=== PATIENT | female | born 1990 | race Caucasian/White ===

== ENCOUNTER 2016-07-25 10:39 | Emergency (ER) | payer OTHER ==
[2016-07-25 10:47] VITALS: BP 127/85
--- NOTE | 2016-07-25 11:39 | XRAY Preliminary Report ---
Exam: XR Ankle 3 View RT IMPRESSION: Negative for fracture, dislocation or subluxation in the right ankle radiography. [facility] SITE ID: [id number]
--- NOTE | 2016-07-25 11:40 | XRAY Preliminary Report ---
Exam: XR Foot 3 View RT IMPRESSION: Normal foot radiography. [facility] SITE ID: [id number]
--- NOTE | 2016-07-25 11:41 | XRAY Report ---
EXAM: RIGHT ANKLE RADIOGRAPHY EXAM DATE: 07/25/2016 11:14 AM. CLINICAL HISTORY: Ankle and foot pain. Fall from a stationary pickup truck. COMPARISON: None. TECHNIQUE: 3 views. FINDINGS: Bones: No fractures or bone lesions. Joints: No effusion. No subluxations. The ankle mortise is normally aligned. Soft Tissues: Anterior and lateral ankle soft tissue swelling without radiopaque foreign body. IMPRESSION: Negative for fracture, dislocation or subluxation in the right ankle radiography. [facility] Referring Provider Line: [phone] SITE ID: [id number]
--- NOTE | 2016-07-25 11:43 | XRAY Report ---
EXAM: RIGHT FOOT RADIOGRAPHY EXAM DATE: 07/25/2016 11:14 AM. CLINICAL HISTORY: Ankle and foot pain. Fall from a stationary pickup truck. COMPARISON: None. TECHNIQUE: 3 views. FINDINGS: Bones: Normal. No fractures or bone lesions. Joints: Normal. No subluxations. Soft Tissues: Normal. No soft tissue swelling. IMPRESSION: Normal foot radiography. [facility] Referring Provider Line: [phone] SITE ID: [id number]
--- NOTE | 2016-07-25 12:30 | ED Physician Documentation ---
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 and fell back and hurt her foot and ankle Review of Systems Musculoskeletal: reports: Pain with weight bearing PD PAST MEDICAL HISTORY - Past Medical History Cardiovascular: None Respiratory: None Neuro: None Endocrine/Autoimmune: None GI: None, Cholelithiasis SALES PROCESS MANAGER: None : None HEENT: None Psych: None Musculoskeletal: None Derm: None - Past Surgical History Past Surgical History: Yes General: Appendectomy /SALES PROCESS MANAGER: section - Present Medications Home Medications: Ambulatory Orders Medication Instructions Recorded Confirmed Ibuprofen [Motrin] 400 mg PO Q6H PRN #30 tablet 07/25/16 - Allergies Allergies/Adverse Reactions: Allergies Allergy/AdvReac Type Severity Reaction Status Date / Time acetaminophen [From Vicodin] Allergy Unknown Verified 01/21/14 14:25 hydrocodone bitartrate * Allergy Unknown Verified 01/21/14 14:25 [From Vicodin] - Social History Does the pt smoke?: No Smoking Status: Never smoker Does the pt drink ETOH?: No Does the pt have substance abuse?: No - Immunizations Immunizations are current?: Yes - POLST Patient has POLST: No PD ED PE NORMAL - Vitals Vital signs reviewed: Yes - Extremities Extremities: Other (RLE : bruising and swellign lat mall and prox lateral hind foot, TTP ST below mall, MSV intact) Results - Vitals Vitals: Vital Signs - 24 hr 07/25/16 10:43 Temperature 36.3 C L Heart Rate 81 Respiratory 16 Rate Blood Pressure 127/85 H O2 Saturation 100 Oxygen O2 Source Room air - Rads (name of study) foot ankle' Radiology: See rad report (neg) Departure - Departure Disposition: 01 Home, Self Care Clinical Impression: Right ankle sprain Qualifiers: Encounter type: initial encounter Involved ligament of ankle: unspecified ligament Qualified Code(s): S93.401A - Sprain of unspecified ligament of right ankle, initial encounter Condition: Good Instructions: ED Sprain Ankle W X Ray, ED Crutch Walking Prescriptions: Ibuprofen [Motrin] 400 mg PO Q6H PRN #30 tablet PRN Reason: Pain Comments: No weight bearing on that ankle for a week. When you do start ambulating and bearing weight be sure to wear the air cast we gave you. If your ankle and foot still hurt in 2-4 weeks, see your PM for consideration of repeat xrays Also your blood pressure was slightly elevated today - please see your PMD to get it rechecked Forms: Activity restrictions
[2016-07-25] MEDS ORDERED: IBUPROFEN 400 MG TABLET PO STA (12:32)
[2016-07-25] MEDS ORDERED: IBUPROFEN 400 MG TABLET PO ONE (12:34)
== END 2016-07-25 12:42 | disposition home or self-care (01) ==
LOC: ED 10:39
DX: S93.601A Unspecified sprain of right foot, initial encounter (principal); S93.401A Sprain of unspecified ligament of right ankle, initial encounter; W17.89XA Other fall from one level to another, initial encounter
CPT/HCPCS: 73610; 73630; 99283; A9270